=== PATIENT | female | born 1965 | race Caucasian/White ===

== ENCOUNTER → 2016-09-11 | Outpatient (CLI) | payer OTHER ==
[~2016-09-11] MED LIST: ATORVASTATIN CA20 MG PO; B/P PO; BUPROPION HCL150 M2 PO; FLOVENT 11120 INHALA IH; IMITREX100 MG PO; LEXAPRO10 MG PO; LEXAPRO20 MG PO; LIPITOR20 MG PO; LOSARTAN POTAS100 MG PO; METHADONE5 MG PO; MOTRIN800 MG PO; NEXIUM40 MG PO; OMEPRAZOLE40 M1 PO; OXYCODONE HCL30 MG PO; OXYCONTIN20 MG PO; PERCOCET 10/1 TABLET PO; PERCOCET 7.5-31 EACH PO; PHENERGAN12.5 M1 PO; PROMETHAZINE HC25 M1 PO; PROPRANOLOL HC120 MG PO; Percocet 7.5/325,End PO; Phenergan PO; SYMBICORT60 INHALAT IH; TIZANIDINE HCL4 M1 PO; TRAZODONE HCL50 MG PO; TREXIMET 85-1 TABLET PO; VENTOLIN HFA18 GM IH; VITAMIN B-6100 MG PO; ZANAFLEX4 M1 PO; ZANAFLEX6 MG PO; ZOLOFT100 MG PO; nexium; percocet; phenergan; treximet
== END | disposition home or self-care (01) ==
LOC: CDC 09:49
DX: Z01.810 Encounter for preprocedural cardiovascular examination (principal); R00.1 Bradycardia, unspecified; M65.322 Trigger finger, left index finger; M65.332 Trigger finger, left middle finger; Z88.6 Allergy status to analgesic agent
CPT/HCPCS: 93000